=== PATIENT | male | born 1965 | race Hispanic/Latino ===

== ENCOUNTER 2020-08-05 22:52 | Emergency (ER) | payer MEDICARE ==
[~2020-08-05 22:52] MED LIST: DEXTROSE 25 % IN WATER (2.5 GM) 10 ML SYRINGE IV ONE; EPINEPHrine 1 MG/10 ML SYRINGE ONE; SODIUM BICARB 8.4% 50 MEQ/50 ML SYRINGE IV ONE
--- NOTE | 2020-08-05 23:33 | Emergency Department Report ---
ED CPR HPI - General Chief Complaint: Cardiac Arrest/CPR Stated Complaint: CARDIAC Time Seen by Provider: 08/05/20 23:32 Source: family, EMS (Verbal report received from emergency medical services. EMS documentation not available at time of chart dictation ), RN notes reviewed Mode of arrival: Stretcher Limitations: Altered Mental Status, Physical Limitation - History of Present Illness Initial Comments: The patient was evaluated in the emergency department for symptoms described in the history of present illness. He/she was evaluated in the context of the global COVID-19 pandemic, which necessitated consideration that the patient might be at risk for infection with the virus that causes COVID-19. Institutional protocols and algorithms that pertain to the evaluation of patients at risk for COVID-19 are in a state of rapid change based on information released by regulatory bodies including the CDC and federal and state organizations. These policies and algorithms were followed during the patient's care in the emergency department. Please note that these policies, procedures and recommendations changed on a rapid basis. During the entire history and physical examination, I had on complete personal protective equipment. The patient is a 54-year-old gentleman. He has a history of developmental delay. He is brought to the hospital with emergency medical services, with an EMS articulated complaint of weakness, fever, hypoxia, altered mental status. EMS provided [id number] ventilation to the patient in the field, and placed an oral airway. They report he was saturating in 50% in the field. He also report that he was bradycardic, with a heart rate of 45 bpm, and hypotensive, with a blood pressure in the 80s. They report that they gave the patient atropine, 0.5 mg. Upon arrival to this emergency room, the patient is receiving [id number] ventilation, with an oral airway in place. Pulses are not appreciated. CPR is initiated, standard ACLS interventions are performed. Patient intubated by myself using a video laryngoscope, without need for induction agent or paralytic, with 1 attempt and no difficulty. In spite of vigorous resuscitation and ACLS care, pulses are not obtained. The patient does not have a shockable rhythm. Multiple bedside transthoracic echocardiogram showed no coordinated ventricular activity. After prolonged resuscitation, efforts were terminated secondary to medical futility. Patient's family member is subsequently informed. Complaint: other -: hour(s) Place: home Bystander CPR Performed: No AED Applied by Bystander/Services Clerk: No Initial Findings in the Field: lethargic, agonal, other rhythm (Sinus rhythm, bradycardia, hypotensive) ROSC in the Field: No Associated Symptoms: shortness of breath, other (Weakness, confusion, fever) Treatments Prior to Arrival: BMV, other airway device (Oral airway) ED Review of Systems ROS: Stated complaint: CARDIAC Other details as noted in HPI Comment: Unobtainable due to pts medical conditions (Review of systems obtained from EMS and from family) Constitutional: fever Respiratory: shortness of breath Neurological: confusion ED Physical Exam - General Limitations: Altered Mental Status, Physical Limitation General appearance: obtunded, other (GCS of 3) - Head Head exam: Present: atraumatic, normocephalic - Eye Eye exam: Present: normal appearance, conjunctival injection, other (Pupils dilated, do not react to light.) - ENT ENT exam: Present: normal orophraynx, mucous membranes moist - Neck Neck exam: Present: normal inspection. Absent: tenderness, meningismus - Respiratory Respiratory exam: Absent: normal lung sounds bilaterally (The patient is not breathing spontaneously) - Cardiovascular Cardiovascular Exam: Present: other (The patient is pulseless). Absent: systolic murmur, diastolic murmur, rubs, gallop - GI/Abdominal GI/Abdominal exam: Present: soft - Rectal Rectal exam: Present: deferred - Extremities Exam Extremities exam: Present: normal inspection, pedal edema - Back Exam Back exam: Present: normal inspection - Neurological Exam Neurological exam: Present: altered, other (GCS of 3) - Psychiatric Psychiatric exam: Present: other (Patient is nonverbal) - Skin Skin exam: Present: warm, dry, intact, normal color. Absent: rash - Intubation Time Out Performed: No (Emergency situation) Sedative: none (Not needed) Laryngoscope: fiberoptic video scope Size: 4 (Curved S4) Assist Device Used: fiberoptic device ET Tube Size: 7.5 Tube Secured Depth (cm): 24 Tube Secured Location: teeth Tube Placement Confirmation: visualized tube passing t, confirmation by capnometr Patient Tolerated Procedure: well Intubation Complications: none ED Medical Decision Making - Medical Decision Making Differential diagnosis, including but not limited to: Bacteremia, viremia, intracranial hemorrhage, COVID-19 Critical care attestation.: If time is entered above; I have spent that time in minutes in the direct care of this critically ill patient, excluding procedure time. ED Disposition Clinical Impression: Suspected 2019 novel coronavirus infection, Cardiac arrest Disposition: DC-20 Is pt being admited?: No Does the pt Need Aspirin: No Condition: Undetermined Referrals: PRIMARY CARE, [Primary Care Provider] - 3-5 Days
== END 2020-08-06 02:00 ==
LOC: ED 22:52
DX: I46.9 Cardiac arrest, cause unspecified (principal); Z20.822 Contact with and (suspected) exposure to COVID-19
CPT/HCPCS: 31500; 99285; J0171